=== PATIENT | female | born 1955 ===

== ENCOUNTER 2021-08-26 09:45 | Inpatient (IN) | payer OTHER ==
[~2021-08-26] VITALS: Ht 157.5 cm; Wt 137.9 kg
[2021-08-26] MEDS ORDERED: ATACAND HCT 321 EACH PO (14:33)
[2021-08-26] MEDS ORDERED: GLUCOSAMI PO (14:34)
[2021-08-26] MEDS ORDERED: CIPRO PO (14:34)
[2021-08-27] MEDS ORDERED: PENTOXIFYLLINE400 MG (10:23)
[2021-08-27] MEDS ORDERED: CIPROFLOXACIN500 MG (10:23)
[2021-08-27] MEDS ORDERED: GLUCOSAMINE HC500 MG (10:24)
== END 2021-08-29 12:59 | disposition home or self-care (01) | DRG 735 ==
LOC: OB/GYN 08-27 07:19 → O/R 08-27 07:19 → SURH 08-27 12:15 → OB/GYN 08-27 19:14
PROVIDERS: ADMIT Specialist; ATTEND Specialist
PROC: 0UT94ZZ Resection of Uterus, Percutaneous Endoscopic Approach (ICD-10-PCS; 2021-08-27)
PROC: 0UT74ZZ Resection of Bilateral Fallopian Tubes, Percutaneous Endoscopic Approach (ICD-10-PCS; 2021-08-27)
PROC: 0UT24ZZ Resection of Bilateral Ovaries, Percutaneous Endoscopic Approach (ICD-10-PCS; 2021-08-27)
PROC: 0DNU4ZZ Release Omentum, Percutaneous Endoscopic Approach (ICD-10-PCS; 2021-08-27)
PROC: 3E1M38Z Irrigation of Peritoneal Cavity using Irrigating Substance, Percutaneous Approach (ICD-10-PCS; 2021-08-27)
PROC: 07TC4ZZ Resection of Pelvis Lymphatic, Percutaneous Endoscopic Approach (ICD-10-PCS; principal; 2021-08-27 07:00)
DX: C54.1 Malignant neoplasm of endometrium (principal); Z20.822 Contact with and (suspected) exposure to COVID-19; D25.1 Intramural leiomyoma of uterus